=== PATIENT | male | born 2000 | race Native Hawaiian/Other Pacific Islander ===

== ENCOUNTER 2021-01-03 23:00 | Emergency (ER) | payer OTHER ==
[2021-01-03 23:21] VITALS: RESP 18
--- NOTE | 2021-01-04 00:42 | XR ---
EXAMINATION TYPE: XR hand complete RT DATE OF EXAM: 01/04/2021 COMPARISON: NONE HISTORY: Pain TECHNIQUE: 3 views FINDINGS: Metacarpals are intact. There is a 2 mm chip fracture of the posterior base of the distal p halanx of the little finger. There is separation of the fragment approximately 3 mm. There is no disl ocation. The other fingers are intact. IMPRESSION: Acute intra-articular chip fracture of the posterior base of the distal phalanx of the li ttle finger right hand. There is slight flexion deformity.
--- NOTE | 2021-01-04 00:59 | ED ---
Upper Extremity HPI - General Chief Complaint: Extremity Injury, Upper Stated Complaint: Finger Injury Time Seen by Provider: 01/04/21 00:06 Source: patient Mode of arrival: ambulatory - History of Present Illness Initial Comments: 20-year-old male patient presents to the emergency department today for evaluation of right hand and finger pain. Patient states couple of weeks ago he fell while at work. He states he was carrying shingles on a roof when he slipped and fell injuring the hand. States he is having pain around the first MCP joint and has pain and deformity to the right little finger. Denies taking anything for pain. Denies numbness or tingling to the fingers. Denies any wrist or elbow pain. Denies any other injuries. Has not been previously evaluated for this injury. - Related Data Home Medications Medication Instructions Recorded Confirmed Albuterol Inhaler (Mhu) [Ventolin 1 puff INHALATION RT-QID PRN 01/17/15 05/12/16 Hfa Inhaler (Mhu)] Acetaminophen Tab [Tylenol Tab] 1,000 mg PO ONCE PRN 05/12/16 05/12/16 Albuterol Nebulized [Ventolin 2.5 mg INHALATION RT-QID PRN 05/12/16 05/12/16 Nebulized] Beclomethasone Dipropionate [Qvar 2 puff INHALATION RT-DAILY 05/12/16 05/12/16 80 mcg] Sulfamethox-Tmp 800-160Mg [Bactrim 1 tab PO Q12HR 05/12/16 05/12/16 DS 800-160 mg] Previous Rx's Medication Instructions Recorded Acetaminophen-Codeine 300-30mg 1 tab PO Q6H #8 tablet 05/12/16 [Tylenol #3] Allergies Allergy/AdvReac Type Severity Reaction Status Date / Time No Known Allergies Allergy Verified 01/03/21 23:21 Review of Systems ROS Statement: Those systems with pertinent positive or pertinent negative responses have been documented in the HPI. ROS Other: All systems not noted in ROS Statement are negative. Past Medical History Past Medical History: Asthma History of Any Multi-Drug Resistant Organisms: MRSA Date of last positivie culture/infection: 05/12/16 MDRO Source:: RIGHT ARM Past Surgical History: No Surgical Hx Reported Past Psychological History: No Psychological Hx Reported Smoking Status: Never smoker Past Alcohol Use History: None Reported Past Drug Use History: None Reported General Exam General appearance: alert, in no apparent distress, other (Physical well- developed, well-nourished adult male patient in no acute distress. Vital signs upon presentation are temperature 98.2F, pulse 71, respirations 18, blood pressure 138/79, pulse ox 99% on room air.) Respiratory exam: Present: normal lung sounds bilaterally. Absent: respiratory distress, wheezes, rales, rhonchi, stridor Cardiovascular Exam: Present: regular rate, normal rhythm, normal heart sounds. Absent: systolic murmur, diastolic murmur, rubs, gallop, clicks Extremities exam: Present: full ROM, normal capillary refill, other (There is tenderness over the right first MCP joint, there is no mallet deformity noted to the distal right little finger. Skin is otherwise warm and dry. Cap refill less than 3 seconds. Radial pulses 2+). Absent: normal inspection, tenderness, pedal edema, joint swelling, calf tenderness Neurological exam: Present: alert, oriented X3, CN II-XII intact Psychiatric exam: Present: normal affect, normal mood Skin exam: Present: warm, dry, intact, normal color. Absent: rash Course Vital Signs 01/03/21 01/04/21 23:17 01:13 Temperature 98.2 F 98.7 F Pulse Rate 71 72 Respiratory 18 18 Rate Blood Pressure 138/79 148/98 O2 Sat by Pulse 99 98 Oximetry Medical Decision Making - Medical Decision Making 20-year-old male patient presents for evaluation of right hand injury. Physical examination did reveal mallet deformity of the right little finger. X-rays were obtained and showed evidence for an intra-articular chip fracture of the distal phalanx. He was placed in a frog splint to maintain flexion of the right little finger. He will be discharged to follow-up with orthopedics for further evaluation as soon as possible. He declined pain medication while here. Return parameters were discussed in detail. He verbalizes understanding and agrees this plan. My attending is Dr. Field. - Radiology Data Radiology results: report reviewed, image reviewed 3 views of the right hand are obtained. Report was reviewed in its entirety. Impression by Dr. Jackson shows acute intra-articular chip fracture of the posterior base the distal phalanx of the little finger right hand. There is flexion deformity. Disposition Clinical Impression: Mallet deformity of right little finger, Fracture of distal phalanx of right little finger Disposition: HOME SELF-CARE Condition: Good Instructions (If sedation given, give patient instructions): Finger Fracture (ED) Additional Instructions: Call orthopedics for appointment in the morning. Inform them you have Mallet Deformity of right little finger as well as a finger fracture. Keep splint in place until follow-up. Take Tylenol Motrin for pain control. Return to the emergency department for any new, worsening, or concerning symptoms. Is patient prescribed a controlled substance at d/c from ED?: No Referrals: Franklin Bolaños MD [Primary Care Provider] - 1-2 days Pablo Shukla MD [STAFF PHYSICIAN] - 1-2 days Time of Disposition: 00:59
[2021-01-04 01:15] VITALS: BP 148/98; PULSE 72; TEMP 98.7
== END 2021-01-04 01:10 | disposition home or self-care (01) ==
LOC: EC 23:00
DX: S92.531A Displaced fracture of distal phalanx of right lesser toe(s), initial encounter for closed fracture (principal); J45.909 Unspecified asthma, uncomplicated; W19.XXXA Unspecified fall, initial encounter; Y99.0 Civilian activity done for income or pay
CPT/HCPCS: 99283

== ENCOUNTER 2021-07-02 06:39 | Emergency (ER) | payer OTHER ==
[2021-07-02] MEDS ORDERED: SODIUM CHLORIDE 0.9% 2,000 ML IV ONE (06:48)
[2021-07-02 06:51] VITALS: TEMP 97.6
--- NOTE | 2021-07-02 07:23 | ED ---
General Adult HPI - General Stated complaint: Alcohol Time Seen by Provider: 07/02/21 06:41 Source: patient, EMS, RN notes reviewed Mode of arrival: EMS Limitations: no limitations - History of Present Illness Initial comments: 20-year-old male presents emergency Department with EMS for alcohol intoxication. Patient was found in his car by police he son be intoxicated, not very cooperative. He denies any drug use denies any physical complaints. Patient is here by himself there is no further story at this time. Patient does not have a cell phone is unable to call anybody he states. - Related Data Home Medications Medication Instructions Recorded Confirmed Albuterol Sulfate [Albuterol 2 puff INHALATION RT-QID PRN 07/02/21 07/02/21 Sulfate Hfa] Allergies Allergy/AdvReac Type Severity Reaction Status Date / Time cat dander Allergy Swelling Verified 07/02/21 08:07 at contact site Review of Systems ROS Statement: Those systems with pertinent positive or pertinent negative responses have been documented in the HPI. ROS Other: All systems not noted in ROS Statement are negative. Past Medical History Past Medical History: Asthma History of Any Multi-Drug Resistant Organisms: MRSA Date of last positivie culture/infection: 05/12/16 MDRO Source:: RIGHT ARM Past Surgical History: No Surgical Hx Reported Past Psychological History: No Psychological Hx Reported Smoking Status: Never smoker Past Alcohol Use History: Heavy Past Drug Use History: Marijuana General Exam Limitations: no limitations General appearance: alert, in no apparent distress, appears intoxicated Head exam: Present: atraumatic, normocephalic, normal inspection Eye exam: Present: normal appearance, PERRL, EOMI. Absent: scleral icterus, conjunctival injection, periorbital swelling ENT exam: Present: normal exam, normal oropharynx, mucous membranes moist Neck exam: Present: normal inspection, full ROM. Absent: tenderness, meningis mus, lymphadenopathy Respiratory exam: Present: normal lung sounds bilaterally. Absent: respiratory distress, wheezes, rales, rhonchi, stridor Cardiovascular Exam: Present: regular rate, normal rhythm, normal heart sounds. Absent: systolic murmur, diastolic murmur, rubs, gallop, clicks GI/Abdominal exam: Present: soft, normal bowel sounds. Absent: distended, tenderness, guarding, rebound, rigid Course Vital Signs 07/02/21 07/02/21 06:48 09:29 Temperature 97.6 F Pulse Rate 83 95 Respiratory 16 18 Rate Blood Pressure 130/67 130/64 O2 Sat by Pulse 99 100 Oximetry Medical Decision Making - Medical Decision Making Patient was brought in for possible intoxication but alcohol is over 200. Patient was able to get a ride home patient is stable for discharge return parameters were discussed. - Lab Data Result diagrams: 07/02/21 07:23 07/02/21 07:23 Lab Results 07/02/21 07/02/21 Range/Units 07:23 07:23 WBC 7.0 (4.0-11.0) k/uL RBC 5.12 (4.30-5.90) m/uL Hgb 15.4 (13.0-17.5) gm/dL Hct 46.8 (39.0-53.0) % MCV 91.5 (80.0-100.0) fL MCH 30.1 (25.0-35.0) pg MCHC 32.9 (31.0-37.0) g/dL RDW 13.4 (11.5-15.5) % Plt Count 227 (150-450) k/uL MPV 6.6 Neutrophils % 47 % Lymphocytes % 45 % Monocytes % 5 % Eosinophils % 2 % Basophils % 1 % Neutrophils # 3.3 (1.3-7.7) k/uL Lymphocytes # 3.1 (1.0-4.8) k/uL Monocytes # 0.3 (0-1.0) k/uL Eosinophils # 0.1 (0-0.7) k/uL Basophils # 0.1 (0-0.2) k/uL Sodium 144 (137-145) mmol/L Potassium 3.8 (3.5-5.1) mmol/L Chloride 115 H (98-107) mmol/L Carbon Dioxide 23 (22-30) mmol/L Anion Gap 6 mmol/L BUN 13 (9-20) mg/dL Creatinine 0.71 (0.66-1.25) mg/dL Est GFR (CKD-EPI)AfAm >90 (>60 ml/min/1.73 sqM) Est GFR (CKD-EPI)NonAf >90 (>60 ml/min/1.73 sqM) Glucose 105 H (74-99) mg/dL Calcium 8.2 L (8.4-10.2) mg/dL Total Bilirubin 0.5 (0.2-1.3) mg/dL AST 24 (17-59) U/L ALT 24 (4-49) U/L Alkaline Phosphatase 54 (38-126) U/L Total Protein 6.8 (6.3-8.2) g/dL Albumin 4.0 (3.5-5.0) g/dL Lipase 283 (23-300) U/L Serum Alcohol 226 H* mg/dL Disposition Clinical Impression: Alcohol intoxication Disposition: HOME SELF-CARE Condition: Stable Instructions (If sedation given, give patient instructions): Alcohol Intoxication (ED) Additional Instructions: Please return to the Emergency Department if symptoms worsen or any other concerns. Is patient prescribed a controlled substance at d/c from ED?: No Referrals: Franklin Bolaños MD [Primary Care Provider] - 1-2 days Time of Disposition: 09:41
[2021-07-02 07:44] LABS: Basophils # (A) 0.1 k/uL (0-0.2); Basophils % (A) 1 %; Eosinophils # (A) 0.1 k/uL (0-0.7); Eosinophils % (A) 2 %; HCT 46.8 % (39.0-53.0); HGB 15.4 gm/dL (13.0-17.5); Lymphocytes # (A) 3.1 k/uL (1.0-4.8); Lymphocytes % (A) 45 %; MCH 30.1 pg (25.0-35.0); MCHC 32.9 g/dL (31.0-37.0); MCV 91.5 fL (80.0-100.0); Mean Platelet Volume 6.6; Monocytes # (A) 0.3 k/uL (0-1.0); Monocytes % (A) 5 %; Neutrophils # (A) 3.3 k/uL (1.3-7.7); Neutrophils % (A) 47 %; Platelet Count 227 k/uL (150-450); RBC 5.12 m/uL (4.30-5.90); RDW 13.4 % (11.5-15.5)
[2021-07-02 07:57] LABS: ALT 24 U/L (4-49); AST 24 U/L (17-59); African American GFR (CKD) >90 (>60 ml/min/1.73 sqM); Alkaline Phosphatase 54 U/L (38-126); Anion Gap 6 mmol/L; Blood Urea Nitrogen 13 mg/dL (9-20); Calcium 8.2 mg/dL (8.4-10.2); Carbon Dioxide 23 mmol/L (22-30); Chloride 115 mmol/L (98-107); Glucose 105 mg/dL (74-99); Lipase 283 U/L (23-300); Non-African American GFR(CKD) >90 (>60 ml/min/1.73 sqM); Potassium 3.8 mmol/L (3.5-5.1); Sodium 144 mmol/L (137-145); Total Bilirubin 0.5 mg/dL (0.2-1.3); Total Protein 6.8 g/dL (6.3-8.2)
[2021-07-02 08:18] LABS: Alcohol 226 mg/dL
[2021-07-02 09:30] VITALS: BP 130/64; PULSE 95; RESP 18
== END 2021-07-02 09:29 | disposition home or self-care (01) ==
LOC: EC 06:39
DX: F10.129 Alcohol abuse with intoxication, unspecified (principal); J45.909 Unspecified asthma, uncomplicated
CPT/HCPCS: 36415; 80053; 83690; 85025; 99284; 96360; 96361; G0480; 80320

== ENCOUNTER 2022-02-22 22:26 | Emergency (ER) | payer OTHER ==
[2022-02-22 22:36] VITALS: TEMP 98
--- NOTE | 2022-02-22 23:17 | CT ---
EXAMINATION TYPE: CT brain wo con DATE OF EXAM: 02/22/2022 COMPARISON: None HISTORY: etoh Weakness CT DLP: 1080.2 mGycm Automated exposure control for dose reduction was used. Images of the brain obtained with no contrast. Ventricles and sulci appear normal. There is no mass effect or midline shift. No sign of intracranial hemorrhage. The calvarium is intact skull base is intact. There is normal aeration of the mastoid si nuses. IMPRESSION: Normal unenhanced head CT scan.
[2022-02-23 00:46] VITALS: BP 129/95; PULSE 68; RESP 15
[2022-02-23] MEDS ORDERED: SODIUM CHLORIDE 0.9% 500 ML 500 ML IV ONE (00:46)
--- NOTE | 2022-02-23 01:24 | ED ---
Alcohol HPI - General Chief Complaint: Alcohol Stated Complaint: ETOH Time Seen by Provider: 02/22/22 22:35 Source: patient Mode of arrival: EMS Limitations: altered mental status (Intoxication) - History of Present Illness Initial Comments: Patient is 21-year-old man brought from home to have evaluation for altered mental status. The patient did admit to drinking large amount of alcohol. At my history, patient not giving much history but denying pains. MD Complaint: alcohol intoxication Last Drink: just [employer] Previous Visits for Alcohol Intoxication?: Yes Recent Trauma: No Associated Symptoms: denies other symptoms - Related Data Home Medications Medication Instructions Recorded Confirmed Albuterol Sulfate [Albuterol 2 puff INHALATION RT-QID PRN 07/02/21 07/02/21 Sulfate Hfa] Allergies Allergy/AdvReac Type Severity Reaction Status Date / Time cat dander Allergy Swelling Verified 02/22/22 22:30 at contact site Review of Systems ROS Statement: Those systems with pertinent positive or pertinent negative responses have been documented in the HPI. ROS Other: All systems not noted in ROS Statement are negative. Limitations: ROS unobtainable due to patients medical condition (Intoxication) Respiratory: Denies: dyspnea Cardiovascular: Denies: chest pain Gastrointestinal: Denies: abdominal pain Musculoskeletal: Denies: back pain Neurological: Denies: headache Psychiatric: Denies: suicidal thoughts Past Medical History Past Medical History: Asthma History of Any Multi-Drug Resistant Organisms: MRSA Date of last positivie culture/infection: 05/12/16 MDRO Source:: RIGHT ARM Past Surgical History: No Surgical Hx Reported Past Psychological History: No Psychological Hx Reported Smoking Status: Never smoker Past Alcohol Use History: Heavy Past Drug Use History: Marijuana General Exam Limitations: no limitations General appearance: alert, in no apparent distress Head exam: Present: atraumatic, normocephalic Eye exam: Present: normal appearance Neck exam: Present: normal inspection. Absent: tenderness Respiratory exam: Present: normal lung sounds bilaterally. Absent: respiratory distress, wheezes, rales, rhonchi, stridor, chest wall tenderness Cardiovascular Exam: Present: regular rate, normal rhythm, normal heart sounds. Absent: systolic murmur, diastolic murmur, rubs, gallop GI/Abdominal exam: Present: soft. Absent: distended, tenderness, guarding, rebound Extremities exam: Present: normal inspection Back exam: Present: normal inspection Neurological exam: Present: altered, reflexes normal. Absent: motor sensory deficit Skin exam: Present: warm, dry, intact, normal color. Absent: rash Course Vital Signs 02/22/22 02/23/22 22:30 00:44 Temperature 98.0 F Pulse Rate 64 68 Respiratory 16 15 Rate Blood Pressure 142/97 129/95 O2 Sat by Pulse 97 100 Oximetry Medical Decision Making - Lab Data Lab Results 02/23/22 Range/Units 01:10 Urine Opiates Screen Not Detected (NotDetected) Ur Oxycodone Screen Not Detected (NotDetected) Urine Methadone Screen Not Detected (NotDetected) Ur Propoxyphene Screen Not Detected (NotDetected) Ur Barbiturates Screen Not Detected (NotDetected) U Tricyclic Antidepress Not Detected (NotDetected) Ur Phencyclidine Scrn Not Detected (NotDetected) Ur Amphetamines Screen Not Detected (NotDetected) U Methamphetamines Scrn Not Detected (NotDetected) U Benzodiazepines Scrn Not Detected (NotDetected) Urine Cocaine Screen Not Detected (NotDetected) U Marijuana (THC) Screen Detected H (NotDetected) Disposition Clinical Impression: Alcoholic intoxication Disposition: HOME SELF-CARE Condition: Good Instructions (If sedation given, give patient instructions): Alcohol Intoxication (ED) Is patient prescribed a controlled substance at d/c from ED?: No Referrals: Franklin Bolaños MD [Primary Care Provider] - 1-2 days
[2022-02-23 01:49] LABS: Amphetamine Screen,Urine Not Detected (NotDetected); Barbiturate Screen,Urine Not Detected (NotDetected); Benzodiazepines Screen,Urine Not Detected (NotDetected); Cocaine Screen,Urine Not Detected (NotDetected); Methadone Screen, Urine Not Detected (NotDetected); Opiate Screen,Urine Not Detected (NotDetected); Oxycodone Screen, Urine Not Detected (NotDetected); Phencyclidine Screen,Urine Not Detected (NotDetected); Tricyclic Antidepressant,Urine Not Detected (NotDetected); Urn Cannabinoid Scrn Detected (NotDetected)
== END 2022-02-23 01:44 | disposition home or self-care (01) ==
LOC: EC 22:26
DX: F10.129 Alcohol abuse with intoxication, unspecified (principal); F12.90 Cannabis use, unspecified, uncomplicated; J45.909 Unspecified asthma, uncomplicated; Z91.014 Allergy to mammalian meats
CPT/HCPCS: 70450; 80306; 99284